=== PATIENT | female | born 1960 | race Caucasian/White ===

== ENCOUNTER 2025-09-14 09:06 | Emergency (ER) | payer MEDICAID, SELFPAY ==
[2025-09-14] VITALS (17 sets, daily range): BP systolic 107–202; BP diastolic 70–112; PULSE 60–82; RESP 20–22; TEMP 36.7; O2SAT 95–100; BMI 25.0
--- NOTE | 2025-09-14 09:18 | PC.NURSE ---
Called [facility] in [place] to get medication list faxed over
--- NOTE | 2025-09-14 09:19 | PC.NURSE ---
DR WOODSON AT BEDSIDE
[2025-09-14] MEDS: ONDANSETRON 4MG/2ML VIAL 4 MG IV (09:22)
--- NOTE | 2025-09-14 09:27 | CT_ITS ---
PROCEDURE INFORMATION: Exam: CT Lumbar Spine With Contrast Exam date and time: 09/14/2025 10:30 AM Age: 64 years old Clinical indication: Pain; Sciatica; Prior surgery; Surgery date: <1 month; Surgery type: Surgery 2 weeks ago; Additional info: Back SX on Sunday, worse miudline pain/swelling TECHNIQUE: Imaging protocol: Computed tomography of the lumbar spine with contrast. Radiation optimization: All CT scans at this facility use at least one of these dose optimization techniques: automated exposure control; mA and/or kV adjustment per patient size (includes targeted exams where dose is matched to clinical indication); or iterative reconstruction. Contrast material: ISOVUE; Contrast volume: 75 ml; Contrast route: IV; COMPARISON: CT ABDOMEN PELVIS W CON 09/14/2025 10:30 AM FINDINGS: Bones/joints: Mild anterolisthesis of L4 over L5 and L5 over S1. L1-L2: No significant disc bulge or herniation. No severe spinal canal stenosis. No significant neural foraminal narrowing. L2-L3: No significant disc bulge or herniation. No severe spinal canal stenosis. No significant neural foraminal narrowing. L3-L4: Severe spinal canal stenosis at L3-L4. L4-L5: Severe spinal canal stenosis at L4-L5. L5-S1: No significant disc bulge or herniation. No severe spinal canal stenosis. No significant neural foraminal narrowing. Soft tissues: Unremarkable. IMPRESSION: 1. Mild anterolisthesis of L4 over L5 and L5 over S1. 2. Severe spinal canal stenosis at L3-L4 and L4-L5.
--- NOTE | 2025-09-14 09:28 | HMH.EDGENADL ---
Discharge Plan Disposition Patient Disposition: Xfer Other Prescriptions Prescriptions: No Action methocarbamol 500 mg tablet 500 mg PO BID venlafaxine 150 mg capsule,extended release 24hr 150 mg PO DAILY oxycodone-acetaminophen 5-325 mg tablet 1 tab PO Q6H PRN (Reason: Pain) trazodone 100 mg tablet 200 mg PO HS ropinirole 2 mg tablet 2 mg PO TID pantoprazole 40 mg tablet,delayed release (DR/EC) 40 mg PO DAILY gabapentin 300 mg capsule 300 mg PO TID cyclobenzaprine 5 mg tablet 5 mg PO BID PRN (Reason: muscle spasm) Referrals Follow up/Referrals: Mian Busch MD [Primary Care Provider, Medical] - See instructions Clinical Impressions Clinical Impression: Abscess of lower back Stand Alone Forms Stand Alone Forms: Transfer Record - ED Print Language Print Language: Ecuadorean Discharge ED Provider: Florin Kraus General Adult HPI General Chief complaint: PAIN Stated complaint: back pain Time Seen by Provider: 09/14/25 09:18 Mode of Arrival: Wheelchair Source of Information: Patient Description of Symptoms (Recalled from ER Triage Doc. by RN): PT C/O BACK PAIN, PT HAD BACK SURGERY AT [facility], THEN WENT ON A CRUISE LOST HER MEDS AND HASN'T HAD ANY MEDS SINCE 09/11. PT UNABLE TO TELL STAFF WHAT TYPE OF SURGERY SHE HAD. PT WONT OPEN EYES, MOANING. History of Present Illness HPI narrative: Tatyana Sunshine is a 64y female with a history of sciatica with back surgery at [facility] on Sunday of this past week who presents to the emergency department for complaints of back pain. Patient states that she went on a cruise and lost her medications and has not had any medications since 09/11. Patient states that she takes oxycodone, venlafaxine primarily. She denies any fevers. She is not sure what type of surgery she had at this point. She states that she has been ambulatory since the incident. She states that she has had some vomiting this morning but has been having normal bowel movements. She denies any numbness or tingling in her genital area. She denies any weakness in her extremities. She states that she has had swelling to her back since the surgery. She denies any fevers. She denies any illicit drug use. Related Data Home Medications ?Medication ?Instructions ?Recorded ?Confirmed cyclobenzaprine 5 mg tablet 5 mg PO BID PRN muscle spasm 09/14/25 09/14/25 gabapentin 300 mg capsule 300 mg PO TID 09/14/25 09/14/25 methocarbamol 500 mg tablet 500 mg PO BID 09/14/25 09/14/25 oxycodone-acetaminophen 5 mg-325 1 tab PO Q6H PRN Pain 09/14/25 09/14/25 mg tablet pantoprazole 40 mg tablet,delayed 40 mg PO DAILY 09/14/25 09/14/25 release ropinirole 2 mg tablet 2 mg PO TID 09/14/25 09/14/25 trazodone 100 mg tablet 200 mg PO HS 09/14/25 09/14/25 venlafaxine 150 mg 150 mg PO DAILY 09/14/25 09/14/25 capsule,extended release 24 hr Allergies Allergy/AdvReac Type Severity Reaction Status Date / Time morphine Allergy Other Verified 09/14/25 09:16 [facility] Disclaimer: The information contained in this section may have been updated after the patient was seen, as this information can be updated by other users. Social History Smoking Status: Current every day smoker alcohol intake: current current occupational status: employed Travel in the last 8 weeks?: None ROS Obtained: Yes Systems reviewed as appropriate & no additional complaints except as documented Physical Exam General General appearance: alert Comment: Moaning, tearful, restless in the stretcher Head Head exam: atraumatic Eye Eye exam: Present normal appearance ENT ENT exam: Present normal external ear exam Neck Neck exam: Present full ROM Chest Chest inspection: Present symmetric chest wall rise Respiratory Respiratory exam: Present normal lung sounds bilaterally; Absent respiratory distress, wheezes or stridor Cardiovascular Cardiovascular exam: Present regular rate and normal rhythm Abdominal Exam Abdominal exam: Present soft, tenderness (Diffuse) and guarding (voluntary); Absent distention Extremities Exam Extremities exam: Present normal inspection Back Exam Back exam: Present normal inspection and vertebral tenderness (Mid lumbar spine tenderness with overlying bogginess. Surgical scar appears to be healing well. No drainage or erythema) Neurological Exam Neurological exam: Present alert and oriented X3; Absent motor sensory deficit (5 out of 5 strength to upper and lower extremities. Sensation 5 out of 5 in bilateral lower extremities.) Psychiatric Psychiatric exam: Present anxious Skin Skin exam: Present warm and dry Medical Decision Making Medical Records Screening: Per USPSTF and CDC recommendations, given the prevalence of disease in our region, it is our hospital?s policy to screen for HIV and viral Hepatitis for all patients aged 18 and over and those with ongoing risk factors. Mamadou Inquiry Pt receiving controlled substance: No Vital Signs: 09/14/25 09:08 09/14/25 09:30 09/14/25 10:01 Temperature 98.0 F Temperature Source Oral Pulse Rate 60 67 Pulse Rate [Radial] 62 Respiratory Rate 22 Blood Pressure 146/86 H 147/91 H Blood Pressure [Right Arm] 202/112 H Blood Pressure Mean [Right Arm] 142 Blood Pressure Source [Right Arm] Automatic Cuff Blood Pressure Position [Right Arm] Sitting 02 Sat by Pulse Oximetry 100 99 97 Oxygen Delivery Method Room Air Room Air Room Air 09/14/25 12:36 09/14/25 13:00 09/14/25 13:30 Temperature Temperature Source Pulse Rate 70 68 72 Pulse Rate [Radial] Respiratory Rate Blood Pressure 169/93 H 155/93 H 135/82 Blood Pressure [Right Arm] Blood Pressure Mean [Right Arm] Blood Pressure Source [Right Arm] Blood Pressure Position [Right Arm] 02 Sat by Pulse Oximetry 100 100 98 Oxygen Delivery Method Room Air Room Air Lab Data Lab Results 09/14/25 09:17: WBC 4.4 L, RBC 4.07 L, Hgb 12.6, Hct 36.6 L, MCV 89.9, MCH 31.0, MCHC 34.4, RDW 11.5, Plt Count 260, MPV 8.4, Neut % (Auto) 61.7, Lymph % (Auto) 26.5, [place] % (Auto) 9.3, Eos % (Auto) 1.6, Baso % (Auto) 0.7, Neut # (Auto) 2.7, Lymph # (Auto) 1.2, [place] # (Auto) 0.4, Eos # (Auto) 0.1, Baso # (Auto) 0.0, ESR 27, Sodium 137, Potassium 3.4 L, Chloride 105, Carbon Dioxide 25, Anion Gap 10.4, BUN 16, Creatinine 0.70, Estimated Creat Clear 63, Estimated GFR 85, Est GFR ( Amer) 103, Glucose 97, Calcium 9.5, Total Bilirubin 0.6, AST 33, ALT 29, Alkaline Phosphatase 114, C-Reactive Protein 0.6, Total Protein 7.3, Albumin 4.3, Globulin 3.0, Albumin/Globulin Ratio 1.4, Lipase 124, Plasma/Serum Alcohol < 10, HCV Ab NASH w/Rflx PCR Qn Negative, HIV Ag/Ab Combo Qual Negative 09/14/25 10:10: Urine Color Yellow, Urine Appearance Clear, Urine pH 8.5, Ur Specific [place] 1.015, Urine Protein Negative, Urine Glucose (UA) Negative, Urine Ketones Negative, Urine Blood Negative, Urine Nitrate Negative, Urine Bilirubin Negative, Urine Urobilinogen 0.2, Ur Leukocyte Esterase Negative, Urine RBC None, Urine WBC None, Ur Squamous Epith Cells None, Urine Bacteria None, Urine Opiates Screen Negative, Urine Methadone Screen Negative, Ur Barbituates Screen Negative, Ur Phencyclidine Scrn Negative, Ur Amphetamines Screen Negative, U Benzodiazepines Scrn Negative, Urine Cocaine Screen Negative, U Marijuana (THC) Screen Positive H 09/14/25 09:17 09/14/25 09:17 Orders (Tests/Meds): ED MEDICATIONS Generic Name Dose Route Start Last Admin Trade Name Freq PRN Reason Stop Dose Admin Multivitamins 10 ml/ Thiamine 1,015 mls @ 150 mls/hr 09/14/25 10:11 09/14/25 10:49 HCl 100 mg/ Magnesium Sulfate IV 09/14/25 16:56 150 mls/hr 2 gm/ Lactated Ringer's .[id number] KIRA Administration Sodium Chloride 10 ml 09/14/25 10:35 09/14/25 10:36 Sodium Chloride 0.9% 10ml Syr (Rad Only) IV 10/14/25 10:34 10 ml NEEDED PRN Administration Maintain IV Site Discontinued Medications Generic Name Dose Route Start Last Admin Trade Name Freq PRN Reason Stop Dose Admin Hydromorphone HCl 0.5 mg 09/14/25 09:31 09/14/25 09:43 Hydromorphone 2mg/Ml Syringe IV 09/14/25 09:32 0.5 mg ONCE ONE Administration Hydromorphone HCl 0.5 mg 09/14/25 12:11 09/14/25 12:16 Hydromorphone 2mg/Ml Syringe IV 09/14/25 12:12 0.5 mg ONCE ONE Administration Piperacillin Sod/Tazobactam 100 mls @ 200 mls/hr 09/14/25 11:37 09/14/25 12:22 Sod 4.5 gm/ Sodium Chloride IV 09/14/25 12:06 Not Given ONCE ONE Vancomycin/PEG/NADA/Lysine/Water 1.25 gm in 250 mls @ 125 mls/hr 09/14/25 11:45 09/14/25 12:45 Vancomycin 1.25gm/250ml (Peg) Premix IV 09/14/25 13:44 125 mls/hr ONCE ONE Administration Piperacillin Sod/Tazobactam 100 mls @ 200 mls/hr 09/14/25 12:15 09/14/25 13:38 Sod 4.5 gm/ Sodium Chloride IV 09/14/25 12:44 Infused ONCE ONE Infusion Iopamidol 75 ml 09/14/25 10:35 09/14/25 10:36 Iopamidol-370 (76%);100ml Bottle IV 09/14/25 10:36 75 ml ONCE ONE Administration Ketorolac Tromethamine 15 mg 09/14/25 09:24 09/14/25 09:29 Ketorolac 15mg/Ml Vial IV 09/14/25 09:25 15 mg ONCE ONE Administration Lorazepam 0.5 mg 09/14/25 12:37 09/14/25 12:41 Lorazepam 0.5mg Tablet PO 09/14/25 12:38 0.5 mg ONCE ONE Administration Ondansetron HCl 4 mg 09/14/25 09:21 09/14/25 09:22 Ondansetron 4mg/2ml Vial IV 09/14/25 09:22 4 mg ONCE ONE Administration Venlafaxine HCl 150 mg 09/14/25 11:32 09/14/25 11:51 Venlafaxine Xr 75mg Capsule PO 09/14/25 11:33 150 mg ONCE ONE Administration ORDERS Category Date Time Status CT abdomen pelvis w con Stat Cat Scan 09/14/25 09:[address] lumbar spine w con Stat Cat Scan 09/14/25 09:27 Completed CBC w/Auto Diff [Complete Blood Count Auto Diff] Stat Lab 09/14/25 09:17 Completed CMP [Comprehensive Metabolic Panel] Stat Lab 09/14/25 09:17 Completed CRP [C-Reactive Protein] Stat Lab 09/14/25 09:17 Completed ESR [Erythrocyte Sedimentation Rate] Stat Lab 09/14/25 09:17 Completed Ethyl Alcohol Stat Lab 09/14/25 09:17 Completed HIV Combo Stat Lab 09/14/25 09:17 Completed Hepatitis C Ab Qual. W/ RFX Stat Lab 09/14/25 09:17 Completed Lactic Acid Stat Lab 09/14/25 09:28 Ordered Lipase Stat Lab 09/14/25 09:17 Completed UA [Urinalysis and Microscopic] Stat Lab 09/14/25 10:10 Completed UDS [Drug Screen,Urine] Stat Lab 09/14/25 10:10 Completed Blood Culture Stat Micro 09/14/25 12:09 Received Medical Decision Narrative: Tatyana Sunshine is a 64y female with a history of sciatica with back surgery at [facility] on Sunday of this past week who presents to the emergency department for complaints of back pain. Patient states that she went on a cruise and lost her medications and has not had any medications since 09/11. Patient states that she takes oxycodone, venlafaxine primarily. She denies any fevers. She is not sure what type of surgery she had at this point. She states that she has been ambulatory since the incident. She states that she has had some vomiting this morning but has been having normal bowel movements. She denies any numbness or tingling in her genital area. She denies any weakness in her extremities. She states that she has had swelling to her back since the surgery. She denies any fevers. She denies any illicit drug use. On arrival, patient is hypertensive but heart rate within normal limits, afebrile, oxygen saturation 100% on room air. Physical exam, stated above, revealed anxious and restless. Female in no respiratory distress. She is tearful. Abdomen is diffusely tender but nondistended with voluntary guarding and no rigidity. Cardiopulmonary exam is unremarkable. Sensation grossly intact to bilateral lower extremities. Motor function intact in bilateral lower extremities with no focal neurological deficits. She has tenderness over the mid lumbar spine. Surgical scar appears to be healing well without erythema or drainage. Differential diagnosis includes, but is not limited to: Opiate withdrawal, abscess formation, postoperative pain, patient also had stated that she was told that she had a kidney stone in the past but is unsure if she ever passed it. Ureterolithiasis is a possibility. Acute pancreatitis is a possibility. Patient initially denied any alcohol or recreational drug use. Workup included hematologic labs, urine studies, UDS, CT abdomen pelvis with IV contrast. Patient was initially treated with 15 mg of IV Toradol and 0.5 mg of IV Dilaudid. Shortly after patient's workup was initiated, patient's son at the bedside stated that she also drinks a fair amount and has not drink since Sunday either. He notes that she is going through a divorce. He states that her surgery was 2 weeks ago, not Sunday, and she went on a cruise after the surgery and had a drain in place that was removed recently. Will obtain CIWA scoring, alcohol level, and administer a bannana bag. Patient's son also notes that she is currently going through a divorce. Will have our contracting support specialist evaluate the patient. Patient's workup shows leukopenia with white blood cell count of 4.4, no anemia with hemoglobin at 12.6, mildly low hematocrit of 36.6. Platelets normal at 260. Mildly low potassium 3.4 but electrolytes and kidney function otherwise within normal limits. Liver enzymes and bilirubin within normal limits. Lipase normal at 124. CRP normal at 0.6. Urinalysis without blood or evidence of infection. UDS positive for marijuana. Alcohol less than 10. CT imaging was interpreted by me personally. There is a fluid collection with wall enhancement measuring 8 x 1.8 x 5 cm in the soft tissues of the back at the level of L4 concerning for abscess. There is fat stranding and fluid around this area. There are other nonspecific findings I did discuss patient's case with the patient's surgeon, Dr. Rd Em and recommended either admission to [facility] versus outpatient follow-up in clinic in the morning as he believes this could be a seroma instead of abscess. I discussed this with patient and she is still in significant pain and I do feel that she would benefit from admission for continued IV antibiotics, pain control, and surgical evaluation and recommended transfer to [facility] and she is in agreement with this plan. She does not feel safe going home due to her significant pain as she lives alone. Her is at the bedside and also states that he does not feel that she is safe going home. Patient was given additional 0.5 mg of Dilaudid for continued pain. Will arrange for BLS transport once patient is accepted to [facility]. Patient also received 0.5 mg of Ativan due to increased anxiety. On reassessment, at approximately 1430, patient states that her pain has improved. She does state that she also broke her phone on the cruise, which is why they have not been able to contact her to schedule out patient appointment. She still does not feel safe going home states over last 3 days, her pain has been uncontrolled and she has not had anybody at home to help her. She is worried about the pain coming back and being as severe as it was. She is also worried because there is a significant amount of ice on the ground and if she tried to get out, she would slip and fall. We are still attempting to reach back out to [place] for transfer. I talked with Thee Newman, who is part of the orthopedic team working with Dr. Reeves. He is going to attempt to reach out to patient care liaison to get an accepting physician for patient transfer at this time. Will reach back out to us once that is obtained. I spoke with Dr. Mccarthy at approximately 1500 who agreed to accept the patient for admission. Will call back with a bed number. Will arrange transport via EMS once bed number is obtained. Critical Care Critical Care Time Critical Care Time: No
[2025-09-14] MEDS: KETOROLAC 15MG/ML VIAL 15 MG IV (09:29)
--- NOTE | 2025-09-14 09:33 | PC.NURSE ---
[facility] is faxing over patients medical records from surgery that was done there
--- NOTE | 2025-09-14 09:33 | PC.NURSE ---
Pt changed into gown and sheet provided. Family provided cup of water and ice. Family asks if patient can have a warm blanket. Advised that department is out of blankets at this time.
[2025-09-14 09:35] LABS: Albumin Level 4.3 g/dl (3.5-5.0); Chloride 105 mmol/L (98-107); Potassium 3.4 mmoL/L (3.5-5.1); Sodium 137 mmol/L (136-145)
[2025-09-14 09:37] LABS: Hematocrit 36.6 % (37.0-47.0); Hemoglobin 12.6 g/dL (12.2-16.2); Immature Granulocytes % 0.2 %; Lipase 124 U/L (23-300); Mean Corpuscular HGB Conc 34.4 g/dL (31.8-35.4); Mean Corpuscular Hemoglobin 31.0 pg (27.0-31.2); Mean Corpuscular Volume 89.9 fl (81-99); Nucleated Red Blood Cells % 0 %; Platelet Count 260 K/mm3 (142-424); Red Blood Count 4.07 M/mm3 (4.20-5.40); Red Cell Distribution Width-SD 37.6 fL; White Blood Count 4.4 K/mm3 (4.8-10.8)
[2025-09-14 09:38] LABS: Alanine Aminotransferase 29 U/L (12-78); Albumin/Globulin Ratio 1.4 (1.1-1.8); Alkaline Phosphatase 114 U/L (38-126); Anion Gap 10.4 mEq/L (5-15); Aspartate Amino Transferase 33 U/L (14-36); Bilirubin,Total 0.6 mg/dl (0.2-1.3); Blood Urea Nitrogen 16 mg/dl (7-17); Carbon Dioxide 25 mmol/L (22.0-30.0); Creatinine Clearance Estimated 63 mL/min (50-200); Creatinine,Serum 0.70 mg/dl (0.52-1.04); Estimated Glomerular Filt Rate 85 ml/min (>60); GFR (African American) 103 ML/MIN (>60); Globulin 3.0 g/dL (1.3-3.2); Total Protein,Serum 7.3 g/dl (6.3-8.2)
[2025-09-14 09:39] LABS: Calcium 9.5 mg/dl (8.4-10.2); Glucose 97 mg/dl (74-100)
[2025-09-14] MEDS: HYDROMORPHONE 2MG/ML SYRINGE 0.5 MG IV ×2 (09:43→12:16)
[2025-09-14 09:44] LABS: C-Reactive Protein 0.6 mg/L (0-4)
--- NOTE | 2025-09-14 09:47 | CT_ITS ---
PROCEDURE INFORMATION: Exam: CT Abdomen And Pelvis With Contrast Exam date and time: 09/14/2025 10:30 AM Age: 64 years old Clinical indication: Abdominal pain; Generalized; Additional info: HX kidney stone, diffuse abdominal pain TECHNIQUE: Imaging protocol: Computed tomography of the abdomen and pelvis with contrast. Radiation optimization: All CT scans at this facility use at least one of these dose optimization techniques: automated exposure control; mA and/or kV adjustment per patient size (includes targeted exams where dose is matched to clinical indication); or iterative reconstruction. Contrast material: ISOVUE; Contrast volume: 75 ml; Contrast route: IV; COMPARISON: CT LUMBAR SPINE W CON 09/14/2025 10:30 AM FINDINGS: Lungs: Mild patchy opacity in the right lung base likely represents atelectasis or infection. Coronary arteries: Coronary artery calcifications are noted. Liver: Normal. No mass. Gallbladder and biliary ducts: Cholecystectomy clips are seen. Mild intrahepatic biliary ductal dilatation is likely due to cholecystectomy. Dilated CBD measuring 1 cm is likely due to cholecystectomy. Pancreas: The main pancreatic duct is dilated in the head of the pancreas measuring 7 mm. Spleen: Normal. No splenomegaly. Adrenal glands: Normal. No mass. Kidneys and ureters: Nonobstructing stone measuring 7 mm is seen in the midpole of the right kidney. Stomach and bowel: Unremarkable. No obstruction. No mucosal thickening. Appendix: No evidence of appendicitis. Intraperitoneal space: No evidence of free air in the abdomen. Vasculature: Mild atherosclerotic calcifications affect the aorta and its branches. Lymph nodes: Unremarkable. No enlarged lymph nodes. Urinary bladder: Air in the urinary bladder is likely due to instrumentation. Infection is not entirely excluded. Reproductive: Unremarkable as visualized. Bones/joints: Mild anterolisthesis of L4 over L5. Soft tissues: Unremarkable. IMPRESSION: 1. Mild intrahepatic biliary ductal dilatation is likely due to cholecystectomy. Dilated CBD measuring 1 cm is likely due to cholecystectomy. Correlate with lab values. 2. The main pancreatic duct is dilated in the head of the pancreas measuring 7 mm. MRCP or ERCP can be obtained for further evaluation. 3. Nonobstructing stone measuring 7 mm in the midpole of the right kidney. 4. Air in the urinary bladder is likely due to instrumentation. Infection is not entirely excluded.
[2025-09-14 10:14] LABS: Microscopic, Urine URINE MICROSCOPIC (MICROSCOPIC)
--- NOTE | 2025-09-14 10:25 | PC.NURSE ---
pt to ct
[2025-09-14 10:33] LABS: Bilirubin,Urine Negative (Negative); Color,Urine YELLOW (Yellow); Glucose,Urine (UA) Negative (Negative); Ketones,Urine Negative (Negative); Leukocyte Esterase,Urine Negative (Negative); PH,Urine 8.5 (5.0-8.5); Protein,Urine Negative (Negative); Specific Gravity, Urine 1.015 (1.005-1.030); Urobilinogen,Urine 0.2 EU/dl (0.2)
[2025-09-14] MEDS: SODIUM CHLORIDE 0.9% 10ML SYR (RAD ONLY) 10 ML IV (10:36)
[2025-09-14] MEDS: IOPAMIDOL-370 (76%);100ML BOTTLE 75 ML IV (10:36)
[2025-09-14 10:40] LABS: Hepatitis C Ab Qual. W/ RFX NEGATIVE (Negative)
[2025-09-14 10:45] LABS: Amphetamine/Metha Screen,Urine Negative ng/ml (<1000); Barbiturates Screen,Urine Negative ng/ml (<200)
[2025-09-14 10:46] LABS: Benzodiazepines Screen,Urine Negative ng/ml (<200)
[2025-09-14 10:48] LABS: Methadone Screen,Urine Negative ng/ml (<300)
[2025-09-14 10:49] LABS: Opiate Screen,Urine Negative ng/ml (<300); Phencyclidine Screen,Urine Negative ng/ml (<25)
[2025-09-14] MEDS: MVI, ADULT NO.1 WITH VIT K 10 ML, THIAMINE HCL 100 MG, MAGNESIUM SULFATE 2 GM in LACTAT... 150 ML IV (10:49)
--- NOTE | 2025-09-14 10:56 | PC.NURSE ---
This RN to bedside to round with patient due to patient yelling out for samantha and [address] . This RN requests if patient could not yell at this time. Pt states can you get me a blanket . This RN advised patient that there is still no blankets available at this time. Pt became agitated and states why are you being so rude to me, how do you not have any blankets? This RN apologizes for the shortage. Pt then starts to say how do you not have an felizabet blankets? Pt advised that is not ok to speak to staff in that manner.
--- NOTE | 2025-09-14 11:31 | PC.NURSE ---
EMMA Rivera notifies this RN pt's son approaches desk to inquire if patient's home medications have been given. Provider notified of patient's request
--- NOTE | 2025-09-14 11:34 | PC.NURSE ---
DR WOODSON SPEAKING WITH RADIOLOGIST
--- NOTE | 2025-09-14 11:40 | PC.NURSE ---
calling [facility] at this time.
[2025-09-14] MEDS: VENLAFAXINE XR 75MG CAPSULE 150 MG PO (11:51)
[2025-09-14] MEDS: PIPERACILLIN/TAZO 4.5 GM in 0.9 % SODIUM CHLORIDE 100 ML IV (12:13)
--- NOTE | 2025-09-14 12:25 | PC.NURSE ---
DR WOODSON SPEAKING WITH [facility]
--- NOTE | 2025-09-14 12:27 | PC.NURSE ---
DR SAINZ AT BEDSIDE TO UPDATE PT AND FAMILY
[2025-09-14] MEDS: VANCOMYCIN/WATER FOR INJ (PEG) 1.25 GM/250 ML PIGGYBACK IV (12:45)
--- NOTE | 2025-09-14 16:29 | PC.NURSE ---
Pt to CT scan via stretcher
--- NOTE | 2025-09-14 18:40 | PC.NURSE ---
Provider notified that patient has a slight headache at this time.
[2025-09-14] MEDS: ACETAMINOPHEN 500MG TAB 1000 MG PO (18:44)
[2025-09-14] MEDS: IBUPROFEN 800 MG TABLET PO (18:44)
--- NOTE | 2025-09-14 19:15 | PC.NURSE ---
Report received from [facility] SQUIRES Pt resting quietly in bed IV infusing without difficulty. Pt in SR per continuous heart monitor. Skin pink warm and dry Resp full and easy Speech clear and appropriate.
--- NOTE | 2025-09-14 19:59 | PC.NURSE ---
Report called to Edwige at [facility]. EMS called to request transport. PT resting quietly in bed
== END 2025-09-14 20:25 | disposition other institution (70) ==
PROVIDERS: Emergency Provider Student in an Organized Health Care Education/Training Program; PCP Family Medicine
DX: L02.212 Cutaneous abscess of back [any part, except buttock and flank] (principal); M54.59 Other low back pain; E87.1 Hypo-osmolality and hyponatremia; F10.90 Alcohol use, unspecified, uncomplicated; F17.210 Nicotine dependence, cigarettes, uncomplicated
CPT/HCPCS: 72132; 74177; 80053; 80307; 80320; 81001; 83605; 83690; 85025; 85651; 86140; 86803; 87040; 87389; 96365; 96366; 96375; 96376; 99285; J1171; J1885; J2405; J2543; J3375; J3411; J3475; J7120; Q9967